=== PATIENT | female | born 1985 | race Caucasian/White ===

== ENCOUNTER 2019-10-16 10:14 | Outpatient (CLI) | payer MEDICAID ==
[~2019-10-16 10:14] MED LIST: HYDR-4383 PO; IBUP-1986 PO; ONDA8TAB9 PO; PHEN-786 PO
== END 2019-10-16 23:59 | disposition home or self-care (01) ==
LOC: RAD 10:14
DX: R01.1 Cardiac murmur, unspecified (principal); Z79.899 Other long term (current) drug therapy
CPT/HCPCS: 93005

== ENCOUNTER 2022-07-27 08:29 | Emergency (ER) | payer MEDICAID ==
[~2022-07-27] VITALS: Ht 157.5 cm; Wt 99.7 kg
[2022-07-27 09:00] VITALS: BP 141/94
[2022-07-27] MEDS ORDERED: ketorolac trometh inj. 60 MG/2 ML VIAL IM ONE (12:15)
[2022-07-27] MEDS ORDERED: cyclobenzaprine 10mg tablet PO ONE (12:15)
[2022-07-27] MEDS ORDERED: CYCL-1 PO (12:33)
[2022-07-27] MEDS ORDERED: NAPR-56 PO (12:33)
[2022-07-27] MEDS ORDERED: acetaminophen 325mg tablet PO ONE (12:35)
== END 2022-07-27 12:57 | disposition home or self-care (01) ==
LOC: ER 08:29
DX: S39.012A Strain of muscle, fascia and tendon of lower back, initial encounter (principal); M62.838 Other muscle spasm; G89.29 Other chronic pain; F32.A Depression, unspecified; F12.90 Cannabis use, unspecified, uncomplicated; Z87.440 Personal history of urinary (tract) infections; Z90.49 Acquired absence of other specified parts of digestive tract; Z98.890 Other specified postprocedural states; Z79.899 Other long term (current) drug therapy; W19.XXXA Unspecified fall, initial encounter; Y93.89 Activity, other specified; Y92.89 Other specified places as the place of occurrence of the external cause; Y99.8 Other external cause status
CPT/HCPCS: 72100; 99284

== ENCOUNTER 2024-12-12 14:36 | Emergency (ER) | payer MEDICAID ==
[~2024-12-12] VITALS: Ht 162.6 cm; Wt 94.0 kg
[~2024-12-12 14:36] MED LIST changes: +CYCL-1 PO
[2024-12-12 16:05] VITALS: TEMP 97.6
[2024-12-12 19:55] LABS: BASOPHILS # (AUTO) 0.1 X10'3 (0-0.2); EOSINOPHILS # (AUTO) 0.1 X10'3 (0-0.9); EOSINOPHILS % (AUTO) 0.9 % (0-6); HEMATOCRIT 34.7 % (35.0-45.0); HEMOGLOBIN 11.8 g/dl (12.0-16.0); LYMPHOCYTES # (AUTO) 2.4 X10'3 (1.1-4.8); LYMPHOCYTES % (AUTO) 25.8 % (21-51); MEAN CORPUSCULAR HEMOGLOBIN 31.3 PG (27.0-31.0); MEAN CORPUSCULAR HGB CONC 34.1 g/dL (33.0-36.5); MEAN CORPUSCULAR VOLUME 91.7 FL (78-98); MEAN PLATELET VOLUME 7.5 FL (7.4-10.4); MONOCYTES # (AUTO) 0.7 X10'3 (0-0.9); MONOCYTES % (AUTO) 7.2 % (2-12); NEUTROPHILS % (AUTO) 65.1 % (42-75); PLATELET COUNT 420 X10'3 (140-440); RED BLOOD COUNT 3.78 X10'6 (4.20-5.60); RED CELL DISTRIBUTION WIDTH 14.8 % (11.5-14.5); WHITE BLOOD COUNT 9.2 X10'3 (4.5-11.0)
[2024-12-12 20:02] LABS: ALBUMIN 3.9 G/DL (3.4-5.0); ANION GAP 8 (8-16); BLOOD UREA NITROGEN 14 MG/DL (7-18); BUN/CREATININE RATIO 24.1 (10.0-20.0); CALCIUM 8.9 MG/DL (8.5-10.1); CHLORIDE 105 MMOL/L (99-107); CREATININE 0.58 MG/DL (0.40-0.90); ETHANOL < 10 MG/DL (<10); GLUCOSE 83 MG/DL (70-104); POTASSIUM 4.3 MMOL/L (3.5-5.1); SODIUM 139 MMOL/L (135-145); TOTAL CARBON DIOXIDE 25.6 MMOL/L (24-32); eCRCL 110 ML/MIN; eGFR > 90 ML/MIN
[2024-12-12 23:02] VITALS: BP 157/98; PULSE 78; RESP 15; O2SAT 99
== END 2024-12-12 23:08 | disposition home or self-care (01) ==
LOC: ER 14:37
DX: L85.3 Xerosis cutis (principal); F22 Delusional disorders; M79.605 Pain in left leg; F32.A Depression, unspecified; F12.90 Cannabis use, unspecified, uncomplicated; Z59.00 Homelessness unspecified; Z90.49 Acquired absence of other specified parts of digestive tract; Z98.890 Other specified postprocedural states
CPT/HCPCS: 36415; 71046; 80048; 80320; 85025; 99284

== ENCOUNTER 2024-12-15 14:37 | Emergency (ER) | payer MEDICAID ==
[~2024-12-15] VITALS: Ht 160 cm; Wt 88.6 kg
[2024-12-15 14:51] VITALS: BP 124/75; PULSE 95; RESP 18; TEMP 97.2; O2SAT 95
[2024-12-15] MEDS: LIDOcaine 5% patch TP STA (15:49)
== END 2024-12-15 15:56 | disposition home or self-care (01) ==
LOC: ER 14:38
DX: Z00.00 Encounter for general adult medical examination without abnormal findings (principal); F32.A Depression, unspecified; F12.90 Cannabis use, unspecified, uncomplicated; F17.210 Nicotine dependence, cigarettes, uncomplicated; Z90.49 Acquired absence of other specified parts of digestive tract; Z98.890 Other specified postprocedural states
CPT/HCPCS: 99283